=== PATIENT | female | born 1965 | race Caucasian/White ===

== ENCOUNTER → 2022-01-18 | Outpatient (CLI) | payer BC ==
--- NOTE | 2022-01-19 09:20 | XR ---
EXAMINATION TYPE: XR chest 2V DATE OF EXAM: 01/18/2022 COMPARISON: NONE HISTORY: Shortness of breath TECHNIQUE: Frontal and lateral views of the chest are obtained. FINDINGS: Scattered senescent parenchymal changes noted. Hyperinflation compatible with COPD. No evidence for infiltrate. No evidence for atelectasis. Heart size is stable. Mediastinal structures are stable and grossly unremarkable. No evidence for hilar prominence. Degenerative changes dorsal spine. IMPRESSION: 1. No evidence for acute pulmonary disease.
== END | disposition home or self-care (01) ==
LOC: RADXRMAIN 17:32
PROVIDERS: ATTEND Internal Medicine
DX: R06.02 Shortness of breath (principal)
CPT/HCPCS: 71046

== ENCOUNTER 2022-08-08 09:31 | Day surgery (SDC) | payer BC ==
[2022-08-04 13:49] VITALS: BMI 21.6
[~2022-08-08 09:31] MED LIST: LACTATED RINGERS 1,000 ML IV SCH; LIDOCAINE 1% (10MG/ML) FOR IV START INTRADERMA PRN
[2022-08-08 09:49] VITALS: RESP 16; TEMP 97.4
[2022-08-08] MEDS ORDERED: ONDANSETRON 4 MG/2 ML VIAL ONE (09:57)
[2022-08-08] MEDS ORDERED: ONDANSETRON 4 MG/2 ML VIAL IVP ONE (09:59)
[2022-08-08] MEDS ORDERED: fentaNYL (PF) 50 MCG/1 ML VIAL IVP ONE (10:05)
[2022-08-08] MEDS ORDERED: LIDOCAINE 2% INJ 20 MG/ML (2 ML VIAL) ONE (10:27)
[2022-08-08] MEDS ORDERED: PROPOFOL 10 MG/ML 20 ML VIAL IV ONE (10:27)
--- NOTE | 2022-08-08 10:48 | P.PCN ---
Date of Procedure: 08/08/22 Procedure(s) Performed: BRIEF HISTORY: Patient is a 57-year-old pleasant female scheduled for an elective colonoscopy as a part of screening for colon cancer and strong family history of colon cancer. Her mother was diagnosed with colon cancer at age 80, her brother at age 60 and one of the sisters had multiple colon polyps requiring colectomy at age 50. PROCEDURE PERFORMED: Colonoscopy. PREOPERATIVE DIAGNOSIS: Screening for colon cancer and family history of colon cancer.. IV sedation per Anesthesia. PROCEDURE: After informed consent was obtained, the patient, was brought into the endoscopy unit. IV sedation was administered by Anesthesia under continuous monitoring. Digital rectal examination was normal. Initially the Olympus CF-160 flexible video colonoscope was then inserted in the rectum, gradually advanced into the cecum without any difficulty. Careful examination was performed as the scope was gradually being withdrawn. Ileocecal valve and the appendiceal orifice were visualized and appeared normal. Prep was excellent. Mucosa of the cecum, ascending colon, transverse colon, descending colon, sigmoid colon, and rectum appeared normal. Retroflexion was performed in the rectum and small internal hemorrhoids were seen. The patient tolerated the procedure well. IMPRESSION: Normal-appearing colon from rectum to cecum no evidence of colorectal neoplasia. RECOMMENDATIONS: Findings of this examination were discussed with the patient as well as a family. She was advised to have a repeat screening colonoscopy every 3 years because of the strong family history of colon cancer.
[2022-08-08 11:06] VITALS: BP 112/74; PULSE 64
== END 2022-08-08 11:23 | disposition home or self-care (01) ==
LOC: ORWHC2ENDO 09:31
PROVIDERS: ATTEND Internal Medicine Gastroenterology
DX: Z12.11 Encounter for screening for malignant neoplasm of colon (principal); K64.8 Other hemorrhoids; Z80.0 Family history of malignant neoplasm of digestive organs; Z83.71 Family history of colonic polyps
CPT/HCPCS: 45378; J2405; J2704; J2001; J3010

== ENCOUNTER → 2022-08-09 | Outpatient (CLI) | payer BC ==
--- NOTE | 2022-08-09 09:08 | BD ---
EXAMINATION TYPE: Axial Bone Density DATE OF EXAM: 08/09/2022 COMPARISON: NONE CLINICAL HISTORY: 57 year old Female. ICD-10 CODE: L70441, [id number] OSTEOPOROSIS SCREENING height: 67 Weight: 143.4 FRAX RISK QUESTIONS: Alcohol (3 or more units per day): no Family History (Parent hip fracture): no Glucocorticoids (More than 3mos): no (Ex: prednisone, prednisolone, methylprednisolone, dexamethasone, and hydrocortisone). History of Fracture in Adulthood: no Secondary Osteoporosis: 1. Type 1 Diabetes: no 2. Hyperthyroidism: no 3. Menopause before 45: no 4. Malnutrition: no 5. Chronic liver disease: no Rheumatoid Arthritis: no Current Tobacco Use: no RISK FACTORS HISTORY OF: Surgery to Spine/Hip(right/left)/Wrist (right/left): no Family History of Osteoporosis: yes Active: yes Diet low in dairy products/other sources of calcium: no Postmenopausal woman: yes Lost more than 2 inches in height since high school: no MEDICATIONS: Additional History: EXAM MEASUREMENTS: Bone mineral densitometry was performed using the [employer] [facility]. Bone mineral density as measured about the Lumbar spine is: ----- L1-L4(G/cm2): 1.195 T Score Values are as follows: ----- L1: -0.3 ----- L2: -1.0 ----- L3: 0.1 ----- L4: 1.4 ----- L1-L4: 0.1 Bone mineral density : baseline Bone mineral density about the R hip (g/cm2): 0.834 Bone mineral density about the L hip (g/cm2): 0.920 T Score values are as follows: -----R Neck: -1.5 -----L Neck: -0.8 -----R Total: -0.7 -----L Total: -0.2 Bone mineral density : baseline FRAX%s: The graph provided illustrates a 3.6% chance for a major osteoporotic fx and a 0.6% chance fo r the hips probability for fx in 10 years time. IMPRESSION: Normal (Values between +1 and -1 indicate normal bone mass). Consider repeating this study in 5 year s or sooner if there is some new clinical indication. NOTE: T-SCORE=SD OF THE YOUNG ADULT MEAN.
--- NOTE | 2022-08-11 13:44 | MM ---
Reason for Exam: Screening (asymptomatic). Last mammogram was performed 1 year(s) and 3 month(s) ago. Patient History: Menarche at age 11. Postmenopausal. Risk Values: Yael 5 year model risk: 1.0%. NCI Lifetime model risk: 5.5%. Prior Study Comparison: 07/07/2019 Bilateral MG screening mammo w CAD - 2, [place]. 04/07/2021 Bilateral MG 3D screening mammo w/cad, [place]. 04/28/2021 Right MG 3D diag mammo w/cad RT - [address] [place] [address]. Tissue Density: The breast tissue is heterogeneously dense. This may lower the sensitivity of mammography. Findings: Analyzed By CAD. Possible distortion superior left MLO view for which further evaluation is recommended. Chronic nodularity superior right MLO view. Otherwise, no significant change. Overall Assessment: Incomplete: need additional imaging evaluation, BI-RAD 0 Management: Special View Mammogram of the left breast. To include spot 3-D MLO, 3-D lateral, and 3-D CC rolled views. Targeted left breast ultrasound if any persisting abnormality. [facility] will attempt to contact patient to return for supplemental views and ultrasound if indicated. Electronically signed and approved by: Bryon Bergman M.D. Radiologist
== END | disposition home or self-care (01) ==
LOC: RADMAMWWP 07:09
PROVIDERS: ATTEND Internal Medicine
DX: Z12.31 Encounter for screening mammogram for malignant neoplasm of breast (principal); Z13.820 Encounter for screening for osteoporosis; Z78.0 Asymptomatic menopausal state; Z80.3 Family history of malignant neoplasm of breast
CPT/HCPCS: 77063; 77067; 77080

== ENCOUNTER → 2022-08-15 | Outpatient (CLI) | payer BC ==
--- NOTE | 2022-08-15 15:51 | MM ---
Reason for Exam: Additional evaluation requested from prior study. Last screening mammogram was performed less than 1 month ago. Patient History: Menarche at age 11. Postmenopausal. Risk Values: Yael 5 year model risk: 1.0%. NCI Lifetime model risk: 5.5%. Prior Study Comparison: 04/07/2021 Bilateral MG 3D screening mammo w/cad, [place]. 04/28/2021 Right MG 3D diag mammo w/cad [facility], [place]. 08/09/2022 Bilateral MG 3D screening mammo w/cad, [facility]. Tissue Density: Left: The breast tissue is heterogeneously dense. This may lower the sensitivity of mammography. Findings: Analyzed By CAD. Under compression and no persistent suspicious distortion is evident. These may be related to summation density. Standard medial lateral view appears normal. No spiculated or lobular masses or cluster of microcalcifications, architectural distortion, or other secondary signs of malignancy radiographically apparent. Overall Assessment: Negative, BI-RAD 1 Management: Screening Mammogram of both breasts in 1 year. A clinical breast exam by your physician is recommended on an annual basis and results should be correlated with mammographic findings. This exam should not preclude additional follow-up of suspicious palpable abnormalities. Results were given to the patient verbally at the time of exam. Electronically signed and approved by: Db Lund D.O. Radiologis
== END | disposition home or self-care (01) ==
LOC: RADMAMWWP 09:00
PROVIDERS: ATTEND Internal Medicine
DX: R92.8 Other abnormal and inconclusive findings on diagnostic imaging of breast (principal); Z78.0 Asymptomatic menopausal state
CPT/HCPCS: 77061; 77065

== ENCOUNTER → 2023-12-10 | Outpatient (CLI) | payer BC ==
--- NOTE | 2023-12-13 22:36 | MM ---
Reason for Exam: Screening (asymptomatic). Last mammogram was performed 1 year(s) and 4 month(s) ago. Patient History: Menarche at age 11. Patient has no children. Postmenopausal. Risk Values: Yael 5 year model risk: 1.6%. NCI Lifetime model risk: 8.1%. Prior Study Comparison: 04/28/2021 Right MG 3D diag mammo w/cad - 2, [place]. 08/09/2022 Bilateral MG 3D screening mammo w/cad, [facility]. 08/15/2022 Left MG 3D work up w/cad , [facility]. Tissue Density: The breasts are heterogeneously dense, which may obscure small masses. Findings: Analyzed By CAD. The pattern is symmetrical. No significant interval change is evident. Previous left distortion appears resolved. No suspicious groups of microcalcifications, spiculated or lobular masses, architectural distortion or other secondary signs of malignancy are mammographically apparent. Overall Assessment: Benign, BI-RAD 2 Management: Screening Mammogram of both breasts in 1 year. A negative mammogram report should not preclude additional follow up of suspicious palpable abnormalities. Patient should continue monthly self breast exam. A clinical breast exam by your physician is recommended on an annual basis and results should be correlated with mammographic findings. Electronically signed and approved by: Db Lund D.O. Radiologis
== END | disposition home or self-care (01) ==
LOC: RADMAMWWP 15:45
PROVIDERS: ATTEND Family Medicine
DX: Z12.31 Encounter for screening mammogram for malignant neoplasm of breast (principal); Z78.0 Asymptomatic menopausal state
CPT/HCPCS: 77063; 77067

== ENCOUNTER → 2025-04-14 | Outpatient (CLI) | payer OTHER ==
--- NOTE | 2025-04-14 07:52 | MM ---
Reason for Exam: Screening (asymptomatic). Last mammogram was performed 1 year(s) and 4 month(s) ago. Patient History: Menarche at age 11. Patient has no children. Postmenopausal. Risk Values: Yael 5 year model risk: 1.6%. NCI Lifetime model risk: 7.9%. Prior Study Comparison: 08/09/2022 Bilateral MG 3D screening mammo w/cad, [facility]. 08/15/2022 Left MG 3D work up w/cad , [facility]. 12/10/2023 Bilateral MG 3D screening mammo w/cad, [facility]. Tissue Density: The breasts are heterogeneously dense, which may obscure small masses. Findings: Analyzed By CAD. Asymmetric density superior left MLO view middle depth remains unchanged from 2021 compatible with a benign etiology. There is no suspicious group of microcalcifications or new suspicious mass in either breast. Overall Assessment: Benign, BI-RAD 2 Management: Screening Mammogram of both breasts in 1 year. Patient should continue monthly self-breast exams. A clinical breast exam by your physician is recommended on an annual basis. This exam should not preclude additional follow-up of suspicious palpable abnormalities. Note on Yael scores and lifetime risk: 1. A Yael score greater than 3% is considered moderate risk. If this is the case, consider specialist referral to assess eligibility for a risk reducing agent. 2. If overall lifetime risk for the development of breast cancer is 20% or higher, the patient may qualify for future screening with alternating mammogram and breast MRI. [facility], , 04/14/2025 7:48 AM. Electronically signed and approved by: Bryon Bergman M.D. Radiologist
== END | disposition home or self-care (01) ==
LOC: RADMAMWWP 07:22
PROVIDERS: ATTEND Family Medicine
DX: Z12.31 Encounter for screening mammogram for malignant neoplasm of breast (principal); R92.333 Mammographic heterogeneous density, bilateral breasts; Z78.0 Asymptomatic menopausal state
CPT/HCPCS: 77063; 77067